=== PATIENT | female | born 1995 | race Two or more races ===

== ENCOUNTER 2019-08-28 13:23 | Emergency (ER) | payer SELFPAY ==
[~2019-08-28] VITALS: Ht 157.5 cm; Wt 97.1 kg
[2019-08-28 13:40] VITALS: BP 111/71
--- NOTE | 2019-08-28 13:40 | NUR ---
ED Nurse Note: Patient ambulated into ER with a c/o shortness of breath and cough for 2 days. Patient is 5 months . Patient is aaox4, on room air with stable vital signs. ERMD at bedside.
--- NOTE | 2019-08-28 14:06 | NUR ---
ED Nurse Note: US is bedside.
[2019-08-28] MEDS: Albuterol/Ipratropium 3ml neb HHN SCH (14:09)
[2019-08-28 15:23] LABS: APPEARANCE,URINE CLEAR; BILIRUBIN, URINE NEGATIVE (NEGATIVE); GLUCOSE, URINE (UA) NEGATIVE (NEGATIVE); KETONES,URINE 4+ (NEGATIVE); LEUKOCYTE ESTERASE ,URINE NEGATIVE (NEGATIVE); NITRITE,URINE NEGATIVE (NEGATIVE); PH,URINE 5 (4.5-8.0); PROTEIN,URINE 1+ (NEGATIVE); UROBILINOGEN,URINE NORMAL MG/DL (0.0-1.0)
[2019-08-28 15:26] LABS: BASOPHILS % (AUTO) 0.5 % (0.0-2.0); EOSINOPHILS % (AUTO) 4.5 % (0.0-3.0); HEMATOCRIT 34.8 % (37.0-47.0); HEMOGLOBIN 12.4 G/DL (12.0-16.0); LYMPHOCYTES % (AUTO) 26.4 % (20.0-45.0); MEAN CORPUSCULAR VOLUME 84 FL (80-99); MONOCYTES % (AUTO) 4.7 % (1.0-10.0); NEUTROPHILS % (AUTO) 63.8 % (45.0-75.0); PLATELET COUNT 285 K/UL (150-450); RED BLOOD COUNT 4.15 M/UL (4.20-5.40); RED CELL DISTRIBUTION WIDTH 11.9 % (11.6-14.8); WHITE BLOOD COUNT 12.1 K/UL (4.8-10.8)
[2019-08-28 15:32] LABS: COLOR,URINE YELLOW
[2019-08-28 15:40] LABS: ANION GAP 13 mmol/L (5-15); BLOOD UREA NITROGEN 4 mg/dL (7-18); CALCIUM 9.3 MG/DL (8.5-10.1); CARBON DIOXIDE 23 MMOL/L (21-32); CHLORIDE 103 MMOL/L (98-107); CREATININE 0.5 MG/DL (0.55-1.30); POTASSIUM 3.4 MMOL/L (3.5-5.1); SODIUM 139 MMOL/L (136-145)
[2019-08-28 15:45] LABS: ALANINE AMINOTRANSFERASE 27 U/L (12-78); ALBUMIN 3.1 G/DL (3.4-5.0); ALBUMIN/GLOBULIN RATIO 0.8 (1.0-2.7); ALKALINE PHOSPHATASE 45 U/L (46-116); ASPARTATE AMINO TRANSFERASE 17 U/L (15-37); BILIRUBIN,TOTAL 0.3 MG/DL (0.2-1.0)
--- NOTE | 2019-08-28 16:28 | Emergency Room Report ---
History of Present Illness General Chief Complaint: Asthma Source: Patient Present Illness HPI 24-year-old female who is G2, P1 and 18 weeks here complaining of 4 days of asthma exacerbation, cough and congestion. Denies any abdominal pain at this time, denies vaginal bleeding and spotting at this time. Reports that she has been using albuterol inhaler with minimal relief. Denies fever and chills, sore throat, earache. Has not traveled recently. Denies any sick contact. Has not been taking medication for symptom relief other than her an albuterol inhaler as was unsure what can be taken while . Denies syncope, chest pain, palpitation, dizziness and headache at this time. Patient was last seen by OIL OPERATOR 1 month ago reports that everything was within normal limits. Denies any urinary symptoms at this time. Denies tobacco smoke, drug use, alcohol intake. Compliant with taking her vitamins. Denies recent leg swelling, sitting for prolonged hours, traveling, pleuritic chest pain. Allergies: Coded Allergies: No Known Allergies (Unverified , 08/28/19) Patient History Past Medical History: see triage record Past Surgical History: unable to obtain Pertinent Family History: none Last Menstrual Period: 05/06/2019 Now: Yes : 2 Para: 1 Immunizations: UTD Reviewed Nursing Documentation: PMH: Agreed; PSxH: Agreed Nursing Documentation-PMH Past Medical History: No History, Except For Hx Asthma: Yes Review of Systems All Other Systems: negative except mentioned in HPI Physical Exam Vital Signs Date Time Temp Pulse Resp B/P (MAP) Pulse Ox O2 Delivery O2 Flow Rate FiO2 08/28/19 13:32 98.1 105 20 111/71 (84) 94 Room Air 08/28/19 14:10 21 Sp02 EP Interpretation: reviewed, normal General Appearance: no apparent distress, alert, GCS 15, non-toxic Head: normocephalic, atraumatic Eyes: bilateral eye normal inspection, bilateral eye PERRL ENT: hearing grossly normal, normal pharynx, no angioedema, normal voice Neck: full range of motion, supple, thyroid normal, no meningismus, no bony tend Respiratory: chest non-tender, no rhonchi, no respiratory distress, no retraction, no accessory muscle use, wheezing Cardiovascular #1: regular rate, rhythm, no edema, no murmur Gastrointestinal: normal bowel sounds, non tender, soft, no mass, no organomegaly, no peritonitis, non-distended, no guarding, no rebound Rectal: deferred Genitourinary: no CVA tenderness Musculoskeletal: back normal, no calf tenderness Neurologic: alert, motor strength/tone normal, oriented x3, sensory intact, responsive, speech normal Psychiatric: judgement/insight normal, memory normal, mood/affect normal, no suicidal/homicidal ideation Skin: no rash Lymphatic: no adenopathy Medical Decision Making PA Attestation All my diagnosis and treatment plans were reviewed ad discussed with my supervising physician Dr. Rocha Diagnostic Impression: Primary Impression: Asthma exacerbation Additional Impression: Atypical pneumonia ER Course 24-year-old female who is G2, P1 and 18 weeks here complaining of 4 days of asthma exacerbation, cough and congestion. Denies any abdominal pain at this time, denies vaginal bleeding and spotting at this time. Reports that she has been using albuterol inhaler with minimal relief. Denies fever and chills, sore throat, earache. Has not traveled recently. Denies any sick contact. Has not been taking medication for symptom relief other than her an albuterol inhaler as was unsure what can be taken while . Denies syncope, chest pain, palpitation, dizziness and headache at this time. Patient was last seen by OIL OPERATOR 1 month ago reports that everything was within normal limits. Denies any urinary symptoms at this time. Denies tobacco smoke, drug use, alcohol intake. Compliant with taking her vitamins. Denies recent leg swelling, sitting for prolonged hours, traveling, pleuritic chest pain. Ddx considered but are not limited to: Asthma exacerbation, atypical pneumonia bronchitis, PNA, URI viral, bacterial bronchitis Vital signs: are WNL, pt. is afebrile H&PE are most consistent with: Asthma exacerbation, atypical pneumonia ORDERS: CMP, UA, beta-hCG, OB ultrasound. Albuterol, guaifenesin, azithromycin ED INTERVENTIONS: 3 treatments of albuterol ipratropium DISCHARGE: At this time pt. is stable for d/c to home. Will provide printed patient care instructions, and any necessary prescriptions. Care plan and follow up instructions have been discussed with the patient prior to discharge. At this time OB ultrasound and beta-hCG are within normal limits and patient is not experiencing any abdominal pain and vaginal bleeding or spotting. Patient to follow-up with OIL OPERATOR in 24 to 48 hours. Also start taking azithromycin, guaifenesin in addition to her albuterol inhaler. If worsening symptoms return to emergency room. At this time no calf tenderness, no pleuritic chest pain, and no other clinical examination and lab findings that would suggest possibility of DVT or PE. However advised patient return to emergency room if experiencing any shortness of breath, pleuritic chest pain, calf tenderness. Patient reports that she was only short of breath due to wheezing and started feeling better after albuterol nebulizer treatment was administered CT/MRI/US Diagnostic Results CT/MRI/US Diagnostic Results : Imaging Test Ordered: OB US Impression heart rate 126, single intrauterine , no subchorionic hemorrhage , no free fluid Last Vital Signs Date Time Temp Pulse Resp B/P (MAP) Pulse Ox O2 Delivery O2 Flow Rate FiO2 08/28/19 14:10 89 18 96 Room Air 21 94 18 95 08/28/19 13:40 98.1 111/71 Disposition: HOME, SELF-CARE Condition: Stable Scripts Azithromycin* (ZITHROMAX*) 250 Mg Tablet 250 MG ORAL DAILY, #6 TAB 0 Refills Take two tables once daily for 1 day, then one tablet once daily for 4 days. Prov: Yadira Restrepo 08/28/19 Guaifenesin* (GUAIFENESIN) 100 Mg/5 Ml Liquid 5 ML ORAL Q6H, #120 ML 0 Refills Prov: Yadira Restrepo 08/28/19 Albuterol Sulfate (VENTOLIN HFA) 18 Gm Hfa.aer.ad 2 PUFFS INH EVERY 6 HOURS, #18 GM 0 Refills Prov: Yadira Restrepo 08/28/19 Referrals: NOT CHOSEN IPA/,REFERRING (PCP) Patient Instructions: Asthma, Adult, Upper Respiratory Infection, Adult, Easy- to-Read Additional Instructions: Follow-up with your OIL OPERATOR within the next 24 to 48 hours, at this time your ultrasound and hormone levels are within normal limits. To be repeated in 24 to 48 hours by your OIL OPERATOR. Take medication as directed, follow- up with your primary care provider, if worsening symptoms return to the emergency room Yadira Restrepo Aug 28, 2019 16:28
[2019-08-28] MEDS ORDERED: GUAIFENESI100 MG/5 M ORAL (16:33)
[2019-08-28] MEDS ORDERED: ZITHROMAX250 MG ORAL (16:33)
[2019-08-28] MEDS ORDERED: VENTOLIN HFA18 GM INH (16:33)
--- NOTE | 2019-08-28 16:42 | Diagnostic Imaging Report ---
Indication: Positive . Pelvic pain Technique: Grayscale and duplex Doppler imaging of the pelvis performed utilizing a transabdominal scan and endovaginal scan. Comparison: None Findings: Single viable intrauterine demonstrated. Gestational age estimated at 18 weeks 2 days based on sonographic criteria. heart tones are demonstrated with active movement. The placenta is posterior. heart rate 126 bpm. measurements as follows: Biparietal diameter 4.14 cm, 18 weeks 4 days. Head circumference 15.4 cm, 18 weeks 3 days. Abdominal circumference 12.05 cm, 17 weeks 6 days. Femur length 2.8 cm, 18 weeks 5 days. Left ovary is identified and measures 4 x 2.2 x 2.7 cm. Right ovary is not seen. Amniotic fluid volume appears appropriate as subjectively assessed on images obtained. Cervix is closed and measures 5.1 cm in length. IMPRESSION: Single living IUP 18 weeks 2 days gestational age. Note: A negative ultrasound evaluation does not insure well-being or positive outcome for the . monitoring including a nonstress test may be needed and clinical evaluation by ASSOCIATE DIRECTOR FINANCE is highly recommended.
[2019-08-28 16:43] VITALS: BP 111/71
--- NOTE | 2019-08-28 16:43 | NUR ---
ER DISCHARGE NOTE: Patient is cleared to be discharged per JOAQUIN May, pt is aox4, on room air, with stable vital signs. pt was given dc and prescription instructions, pt was able to verbalize understanding, pt id band and iv site removed without complications. pt is able to ambulate with steady gait. pt took all belongings.
== END 2019-08-28 16:43 | disposition home or self-care (01) ==
LOC: EMR 14:21
DX: O26.92 Pregnancy related conditions, unspecified, second trimester (principal); J45.901 Unspecified asthma with (acute) exacerbation; O99.512 Diseases of the respiratory system complicating pregnancy, second trimester; Z3A.18 18 weeks gestation of pregnancy; J18.9 Pneumonia, unspecified organism
CPT/HCPCS: 36415; 76801; 76830; 80053; 81003; 84702; 85025; 86850; 86900; 86901; 99284; J7620